=== PATIENT | male | born 1985 | race Caucasian/White ===

== ENCOUNTER 2017-08-10 22:56 | Emergency (ER) | payer MEDICAID ==
[2017-08-11] MEDS: IBUPROFEN 800 MG TAB PO (07:43)
== END 2017-08-11 09:49 | disposition home or self-care (01) ==
LOC: FTE 22:56
DX: S62.303A Unspecified fracture of third metacarpal bone, left hand, initial encounter for closed fracture (principal); X58.XXXA Exposure to other specified factors, initial encounter; Y92.9 Unspecified place or not applicable
CPT/HCPCS: 29125; 73130-LT; 99283-25